=== PATIENT | female | born 1945 | race Caucasian/White ===

== ENCOUNTER → 2016-12-04 | Outpatient (CLI) | payer BC ==
[~2016-12-04] MED LIST: ACET-1311 PO; BUDESUS; CLOP1TAB5 PO; COENCAP9 PO; Clindamycin PO; DOXY100C2 PO; GLC/500 PO; GLC5 PO; GLC500 PO; LPT/40 PO; METO1TAB69 PO; MULTCHW PO; RANI150C4 PO; Vitamin D3 PO; vitamin b12 PO
== END | disposition home or self-care (01) ==
LOC: C.PATHSPEC 17:58
PROVIDERS: ATTEND Plastic Surgery
DX: B07.9 Viral wart, unspecified (principal)

== ENCOUNTER → 2017-01-02 | Outpatient (CLI) | payer BC ==
[2017-01-02 08:26] LABS: BLOOD UREA NITROGEN 15 mg/dl (7-18); BUN/CREATININE RATIO 19.4 (10-20); CALCIUM 9.3 mg/dl (8.5-10.1); CARBON DIOXIDE 28 mmol/L (21-32); CHLORIDE 106 mmol/L (98-107); CREATININE 0.78 mg/dl (0.60-1.20); GLUCOSE 111 mg/dl (70-99); POTASSIUM 4.3 mmol/L (3.5-5.1); SODIUM 142 mmol/L (136-145)
[2017-01-02 08:27] LABS: ESTIMATED AVERAGE GLUCOSE 131 mg/dl; HA1C FLAG Normal (Normal)
== END | disposition home or self-care (01) ==
LOC: C.LABFOXMH 07:44
PROVIDERS: ATTEND Internal Medicine
DX: E11.9 Type 2 diabetes mellitus without complications (principal)

== ENCOUNTER → 2017-01-06 | Outpatient (CLI) | payer BC ==
--- NOTE | 2017-01-06 12:47 | MAMMOGRAPHY REPORT ---
UNILATERAL RIGHT DIGITAL SCREENING MAMMOGRAM TOMOSYNTHESIS WITH CAD: 01/06/2017 CLINICAL HISTORY: Asymptomatic. Personal history of left breast cancer status post mastectomy. TECHNIQUE: Right breast tomosynthesis in addition to standard 2D mammography was performed. Current study was also evaluated with a Computer Aided Detection (CAD) system. COMPARISON: Comparison is made to exams dated: 08/01/2016 mammogram, 07/22/2016 mammogram, 12/24/2015 mammogram, and 12/08/2014 mammogram - [facility]. BREAST COMPOSITION: The tissue of the right breast is almost entirely fatty. FINDINGS: There is a stable ribbon shaped metallic biopsy marker in the 1:00 right breast, at the si te of the biopsied benign fat necrosis. This is no longer identified. There are scattered benign-a ppearing coarse calcifications throughout the entire right breast. No new suspicious mass, architec tural distortion or cluster of microcalcifications is seen. IMPRESSION: ACR BI-RADS CATEGORY 1: NEGATIVE Stable mammographic appearance of the right breast, without mammographic evidence of malignancy. A 1 year screening mammogram is recommended. The patient will receive written notification of the resu lts. Approximately 10% of breast cancers are not detected with mammography. A negative mammographic repor t should not delay biopsy if a clinically suggestive mass is present. Megan Cuellar M.D. ay/:01/06/2017 12:40:12 Apparel Machinery Instructor: Sirena REEVES)(Juan), [facility] letter sent: Normal 1/2 BI-RADS Code: ACR BI-RADS Category 1: Negative
== END | disposition home or self-care (01) ==
LOC: C.MAMM 12:07
PROVIDERS: ATTEND Obstetrics & Gynecology
DX: Z12.31 Encounter for screening mammogram for malignant neoplasm of breast (principal); Z90.12 Acquired absence of left breast and nipple

== ENCOUNTER → 2017-04-23 | Outpatient (CLI) | payer BC ==
[2017-04-23 09:20] LABS: BLOOD UREA NITROGEN 14 mg/dl (7-18); BUN/CREATININE RATIO 18.5 (10-20); CALCIUM 9.6 mg/dl (8.5-10.1); CARBON DIOXIDE 27 mmol/L (21-32); CHLORIDE 109 mmol/L (98-107); CHOLESTEROL 138 mg/dl (0-200); CREATININE 0.78 mg/dl (0.60-1.20); GLUCOSE 101 mg/dl (70-99); POTASSIUM 4.5 mmol/L (3.5-5.1); SODIUM 143 mmol/L (136-145); TRIGLYCERIDES 102 mg/dl (0-150); VERY LOW DENSITY LIPOPROT CALC 20 mg/dl
[2017-04-23 09:25] LABS: CHOLESTEROL/HDL RATIO 2.5; HDL CHOLESTEROL 55 mg/dl; LDL CHOLESTEROL CALCULATED 63 mg/dl
[2017-04-23 10:16] LABS: ESTIMATED AVERAGE GLUCOSE 137 mg/dl; HA1C FLAG Normal (Normal)
== END | disposition home or self-care (01) ==
LOC: C.LABFOXMH 08:38
PROVIDERS: ATTEND Internal Medicine
DX: E11.9 Type 2 diabetes mellitus without complications (principal)

== ENCOUNTER 2017-06-18 08:04 | Emergency (ER) | payer BC ==
[~2017-06-18] VITALS: Ht 162.6 cm; Wt 87.3 kg
[~2017-06-18 08:04] MED LIST changes: -DOXY100C2 PO; -GLC/500 PO
[2017-06-18 08:09] VITALS: TEMP 36.4; Ht 162.6 cm; Wt 87.3 kg
[2017-06-18] MEDS ORDERED: XYLOCAINE 1%/SOD BICARB 20 ML VIAL INFIL ONE (08:25)
[2017-06-18] MEDS ORDERED: GLC/500 PO (09:13)
[2017-06-18] MEDS ORDERED: DOXY100C2 PO (09:36)
[2017-06-18 09:45] VITALS: BP 155/110; PULSE 63; O2SAT 97
--- NOTE | 2017-06-18 09:47 | EMERGENCY ROOM VISIT NOTE ---
ED Visit Note First contact with patient: 08:17 72-year-old female was scratched by her own cat on both hands and evaluated by Juice Phelps PA-C. Please see his note. I also independently evaluated the patient. The patient will be placed on doxycycline prophylactically. The patient believes that her tetanus status is up-to-date. The patient was warned about possible infection and signs to watch out for.
--- NOTE | 2017-06-19 06:12 | EMERGENCY ROOM VISIT NOTE ---
ED Visit Note First contact with patient: 08:17 Chief Complaint: My cats scratched me. History of Present Illness: Ms. Eduardo is a 72-year-old white female who ambulates into the ED complaining of wounds sustained by her personal cats. Historically patient reports the cat's immunizations are up-to-date. 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 She denies any bites. This occurred less than an hour ago. Associated with her scratches she reports she has a stinging and burning pain throughout both hands. She rates her discomfort 6/10. Her pain is nonradiating. Her pain worsens with palpation of her wounds. She has not identified any alleviating factors related to the pain. She has not taken medications for pain prior to arrival at the hospital. She does reports she control bleeding prior to arrival at the hospital and just rinsed her wounds and tap water. She denies any associated symptoms including hand weakness/ numbness/tingling. Review of Systems: As noted above in history of present illness. Past Medical History: (1) ALLERGIC RHINITIS NOS (2) Anemia (3) HX OF BREAST MALIGNANCY (4) HYPERTENSION NOS (5) Osteoarthritis of right shoulder (6) PURE HYPERCHOLESTEROLEM (7) Tachycardia Current Medications: Medications Dose Route/Sig Max Daily Dose Days Date Category Vibramycin (Doxycycline Hyclate) 100 Mg Cap 100 Mg PO BID 10 06/18/17 Rx Glucophage (Metformin Hcl) 500 Mg Tab 500 Mg PO BID 06/18/17 Reported Tylenol (Acetaminophen) 325 Mg Tab 650 Mg PO Q4 PRN 11/20/15 Reported Co-Q 10 [place]-3 Fish Oil (Coenzyme M42-Pzdy Oil-Vitamin) 1 Cap Cap 200 Mg PO QAM 09/17/15 Reported Glipizide 5 Mg Tab 2.5 Mg PO BID 05/03/15 Reported Toprol-Xl (Metoprolol Succinate) 100 Mg Tabcr 100 Mg PO QPM 03/08/14 Reported Centrum Silver (Multiple Vitamins W/ Minerals) 1 Chw Chw 1 Dose PO QAM 01/25/14 Reported Ranitidine Hcl 150 Mg Cap 150 Mg PO BID 04/04/13 Reported Plavix (Clopidogrel Bisulfate) 75 Mg Tab 75 Mg PO HS 04/04/13 Reported Lipitor (Atorvastatin) 40 Mg Tab 40 Mg PO QPM 04/04/13 Reported Allergies to Medications: Penicillin. Social History: Patient is not employed; she feels safe in her home environment ; she denies tobacco use.. Tetanus Immunization Status: Patient reports up-to-date. Physical Examination: Vital Signs: Date Time Temp Pulse Resp B/P (MAP) Pulse Ox O2 Delivery O2 Flow Rate FiO2 06/18/17 09:45 63 18 155/110 97 06/18/17 08:09 36.4 84 18 145/88 94 Room Air GENERAL: 72-year-old female in mild distress due to pain, nontoxic-appearing, afebrile and hemodynamically stable. NEUROLOGICAL: Awake, alert and oriented to person, place and time. Answering questions appropriately and following commands. SKIN: Warm, dry and pink. Right Hand: Patient has multiple superficial laceration over the anterior and posterior aspect of the hand measuring a total of approximately 4 cm. No active bleeding. Left Hand: Over the posterior proximal phalanx of the index finger patient has a 1.8 cm full-thickness laceration and throughout the rest of the hand she has multiple abrasions and superficial lacerations measuring approximately 3 cm. Associated with all these wounds patient is currently on Plavix and she has underlying contusions. UPPER EXTREMITIES: No gross bony deformities. Multiple soft tissue injuries as noted above. No tenderness through the elbows, forearms or wrists. Over her lacerations and abrasions patient is moderately tender but I do not appreciate any bony deformity or crepitus. She does have full range of motion in flexion and extension of all MCP, PIP and DIP joints. Throughout the fingers the skin was warm and pink and capillary refill is brisk. She is able to distinguish light sensations. ED Course: Patient is assessed as noted above. Patient's medication list was reviewed. Wound Repair: Complexity: Basic Verbal consent was obtained after the risks and benefits were explained. The skin was prepped with betadine and a sterile field set. Wound edges of the full-thickness wound was anesthetized with 2.1 ml buffered 1 % lidocaine. The wound was explored for foreign bodies and none found. Copious irrigation was performed using sterile saline. With direct pressure the bleeding subsided. Debridement was not performed. The wound edges were approximated using 5-0 Ethilon with 4 simple interrupted sutures. Hemostasis and excellent approximation was achieved. Antibacterial ointment and a sterile dressing applied. The rest of the patient's superficial abrasions and superficial lacerations were cleansed in the same manner. A few of these wounds the skin were supported with Steri-Strips but did not require suture closure. No complications and the patient tolerated the procedure well. Patient's case was reviewed with Dr. Munguia; in apparently assessed the patient we agreed on diagnostic approach, treatment, disposition and plan. Patient was educated about tonight's findings and instructed on his treatment plan; he verbalizes understanding and agreement with this plan. Clinical Impression: Lacerations of the bilateral hands. Disposition: Patient discharged home in stable condition; prior to departure he was reassessed and subjectively reported she was feeling slightly better and rated her discomfort 5/10. Plan: Comfort measures, wound care, and signs of infection were discussed with the patient. Patient was prescribed doxycycline 100 mg 2 times a day for 7 days for antibiotic coverage. Patient was encouraged to follow-up with personal physician or return emergency department any signs of infection and/or suture removal in 10-12 days.
== END 2017-06-18 09:45 | disposition home or self-care (01) ==
LOC: C.EDB 08:05 → C.EDA 09:45
DX: S61.411A Laceration without foreign body of right hand, initial encounter (principal); S61.412A Laceration without foreign body of left hand, initial encounter; W55.03XA Scratched by cat, initial encounter; I10 Essential (primary) hypertension; E78.00 Pure hypercholesterolemia, unspecified; M19.011 Primary osteoarthritis, right shoulder; Z85.3 Personal history of malignant neoplasm of breast; D64.9 Anemia, unspecified; Z88.0 Allergy status to penicillin

== ENCOUNTER → 2017-09-14 | Outpatient (CLI) | payer BC ==
[~2017-09-14] MED LIST changes: -BUDESUS; -Clindamycin PO; +DOXY100C2 PO; +GLC/500 PO; -GLC500 PO; +METO100T44 PO; -METO1TAB69 PO; -Vitamin D3 PO; -vitamin b12 PO
[2017-09-14 09:16] LABS: HEMATOCRIT 41.7 % (37-47); MEAN CELL VOLUME 92.9 fL (80-100); MEAN CORPUSCULAR HEMOGLOBIN 30.1 pg (25-34); MEAN CORPUSCULAR HGB CONC 32.4 g/dl (32-36); MEAN PLATELET VOLUME 11.3 fL (7.4-10.4); PLATELET COUNT 186 K/uL (130-400); RED BLOOD COUNT 4.49 M/uL (4.2-5.4); WHITE BLOOD COUNT 5.14 K/uL (4.8-10.8)
[2017-09-14 09:27] LABS: ALT/SGPT 26 U/L (12-78); BLOOD UREA NITROGEN 7 mg/dl (7-18); BUN/CREATININE RATIO 8.8 (10-20); CALCIUM 9.5 mg/dl (8.5-10.1); CARBON DIOXIDE 29 mmol/L (21-32); CHLORIDE 104 mmol/L (98-107); CHOLESTEROL 149 mg/dl (0-200); CHOLESTEROL/HDL RATIO 2.4; CREATININE 0.81 mg/dl (0.60-1.20); GLUCOSE 123 mg/dl (70-99); HDL CHOLESTEROL 61 mg/dl; LDL CHOLESTEROL CALCULATED 56 mg/dl; POTASSIUM 4.7 mmol/L (3.5-5.1); SODIUM 141 mmol/L (136-145); TRIGLYCERIDES 162 mg/dl (0-150); VERY LOW DENSITY LIPOPROT CALC 32 mg/dl
[2017-09-14 09:30] LABS: ALKALINE PHOSPHATASE 71 U/L (45-117); AST/SGOT 17 U/L (15-37)
[2017-09-14 09:31] LABS: ESTIMATED AVERAGE GLUCOSE 148 mg/dl; HA1C FLAG Normal (Normal)
== END | disposition home or self-care (01) ==
LOC: C.LABFOXMH 08:58
PROVIDERS: ATTEND Internal Medicine
DX: E11.9 Type 2 diabetes mellitus without complications (principal)

== ENCOUNTER → 2017-12-21 | Outpatient (CLI) | payer BC | END | disposition home or self-care (01) | LOC: C.PAPS 10:59 | PROVIDERS: ATTEND Obstetrics & Gynecology | DX: Z01.419 Encounter for gynecological examination (general) (routine) without abnormal findings (principal) ==

== ENCOUNTER → 2018-01-07 | Outpatient (CLI) | payer BC ==
--- NOTE | 2018-01-07 15:08 | MAMMOGRAPHY REPORT ---
UNILATERAL RIGHT DIGITAL SCREENING MAMMOGRAM TOMOSYNTHESIS WITH CAD: 01/07/2018 CLINICAL HISTORY: Asymptomatic. Personal history of breast cancer. TECHNIQUE: Breast tomosynthesis in addition to standard 2D mammography was performed. Current study was also evaluated with a Computer Aided Detection (CAD) system. COMPARISON: Comparison is made to exams dated: 01/06/2017 mammogram, 08/01/2016 ultrasound biopsy, mammogram, 12/24/2015 mammogram, 12/08/2014 mammogram, and 11/09/2013 mammogram - [facility]. BREAST COMPOSITION: The tissue of the right breast is almost entirely fatty. FINDINGS: There are no suspicious masses, calcifications, or areas of architectural distortion noted within the right breast. There has been no significant interval change compared to prior exams. A b iopsy clip is again noted within the right 12:00 breast. Scattered benign-appearing calcifications a re not significantly changed. IMPRESSION: ACR BI-RADS CATEGORY 2: BENIGN There is no mammographic evidence of malignancy in the right breast. A 1 year screening mammogram is recommended. The patient will receive written notification of the results. Approximately 10% of breast cancers are not detected with mammography. A negative mammographic report should not delay biopsy if a clinically suggestive mass is present. Eryn Her M.D. /:01/07/2018 12:32:23 Health Program Analyst: Roro ROMAN([place])(M), [facility] letter sent: Normal 1/2 BI-RADS Code: ACR BI-RADS Category 2: Benign
== END | disposition home or self-care (01) ==
LOC: C.MAMM 10:20
PROVIDERS: ATTEND Obstetrics & Gynecology
DX: Z12.31 Encounter for screening mammogram for malignant neoplasm of breast (principal)

== ENCOUNTER → 2018-01-13 | Outpatient (CLI) | payer BC ==
[2018-01-13 10:31] LABS: HEMOGLOBIN A1C 6.6 % (4.5-5.6)
== END | disposition home or self-care (01) ==
LOC: C.LABFOXMH 08:42
PROVIDERS: ATTEND Internal Medicine Hospice and Palliative Medicine
DX: E11.9 Type 2 diabetes mellitus without complications (principal)